=== PATIENT | male | born 1950 | race Caucasian/White ===

== ENCOUNTER 2016-09-18 01:16 | Emergency (ER) | payer BC ==
[2016-09-18 01:23] VITALS: BP 124/75
[2016-09-18] MEDS ORDERED: Erythromycin TOPICAL GEL* 30 GM TUBE TOPICAL ONE (01:56)
[2016-09-18] MEDS ORDERED: Erythromycin OPTH OINT* APPLIC OINT LEFT EYE ONE (02:15)
--- NOTE | 2016-11-22 11:01 | ED ---
Throat Pain/Nasal Congestion - HPI Summary HPI Summary: Pt with c/o left eye pain, potential foreign body. Pt states that he was doing yardwork 09/17/16, started to have s/s at that time. - History of Current Complaint Chief Complaint: EDEyeProblem Time Seen by Provider: 09/18/16 01:28 Hx Obtained From: Patient, Family/Reflow Operator Onset/Duration: Sudden Onset Severity: Moderate Associated Signs And Symptoms: Positive: FB Sensation Cough: None - Allergies/Home Medications Allergies/Adverse Reactions: Allergies Allergy/AdvReac Type Severity Reaction Status Date / Time No Known Allergies Allergy Verified 09/18/16 01:23 PMH/Surg Hx/FS Hx/Imm Hx Endocrine/Hematology History: Reports: Hx Diabetes Denies: Hx Bone Marrow Disease, Hx Sickle Cell Disease, Hx Thyroid Disease, Hx Anemia GI History: Reports: Hx Gastroesophageal Reflux Disease Denies: Hx Cirrhosis, Hx Crohn's Disease, Hx Hiatal Hernia, Hx Irritable Bowel, Hx Jaundice, Hx Ulcer, Other GI Disorders History: Reports: Hx Kidney Stones Denies: Hx Kidney Infection, Other Problems/Disorders Musculoskeletal History: Denies: Hx Arthritis, Hx Bursitis, Hx Tendonitis, Other Musculoskeletal History Sensory History: Denies: Hx Cataracts, Hx Contacts or Glasses, Hx Glaucoma, Hx Hearing Aid Opthamlomology History: Denies: Hx Cataracts, Hx Contacts or Glasses, Hx Glaucoma Neurological History: Denies: Hx Headaches, Hx Migraine, Hx Seizures, Other Neuro Impairments/ Disorders Psychiatric History: Denies: Hx Anxiety, Hx Depression - Cancer History Hx Chemotherapy: No - Surgical History Surgery Procedure, Year, and Place: 11 KNEE SURGERIES, RIGHT ANKLE SURGERY X 3, PLATE IN LEFT WRIST 09/15, STENT PLACEMENT. Hx Anesthesia Reactions: No Infectious Disease History: No Infectious Disease History: Denies: Hx Hepatitis, Traveled Outside the [place] in Last 30 Days - Family History Known Family History: Positive: None - Social History Occupation: Retired Lives: With Family Alcohol Use: Occasionally Substance Use Type: Reports: None Smoking Status (MU): Never Smoked Tobacco Review of Systems Positive: Drainage - clear, Erythema. Negative: Photophobia, Blurred Vision, Diplopia All Other Systems Reviewed And Are Negative: Yes Physical Exam Triage Information Reviewed: Yes Vital Signs On Initial Exam: Initial Vitals Temp Pulse Resp BP Pulse Ox 97.3 F 82 16 124/75 99 09/18/16 01:16 09/18/16 01:16 09/18/16 01:16 09/18/16 01:16 09/18/16 01:16 Vital Signs Reviewed: Yes Appearance: Positive: Well-Appearing, No Pain Distress, Well-Nourished Skin: Positive: Warm, Skin Color Reflects Adequate Perfusion, Dry, Soft Head/Face: Positive: Normal Head/Face Inspection Eyes: Positive: EOMI, RIA, Conjunctiva Inflammed - left, Discharge - clear ENT: Positive: Hearing grossly normal Respiratory/Lung Sounds: Positive: Breath Sounds Present Cardiovascular: Positive: RRR Neurological: Positive: Sensory/Motor Intact, Alert, Oriented to Person Place, Time, NV Bundle Intact Distally, Normal Gait Psychiatric: Positive: Affect/Mood Appropriate AVPU Assessment: Alert Procedures - Eye Procedure Alcaine Drops Administered: Yes Eye FB Removal: other - abrasion to left cornea Antibiotic Ointment/Drps Admin: left eye Diagnostics - Vital Signs Vital Signs Temp Pulse Resp BP Pulse Ox 09/18/16 02:28 98.6 F 09/18/16 01:16 97.3 F 82 16 124/75 99 - Laboratory Lab Statement: Any lab studies that have been ordered have been reviewed, and results considered in the medical decision making process. EENT Course/Dx - Differential Diagnoses Differential Diagnoses: Abrasion, Conjunctivitis, Detached Retina, Foreign Body , Laceration, Penetrating Injury, Uveitis - Diagnoses Provider Diagnoses: Corneal abrasion Discharge - Discharge Plan Condition: Stable Disposition: HOME Patient Education Materials: Eye Pain (ED) Referrals: Boni Walden MD [Medical Doctor] - Agustín Caicedo MD [Primary Care Provider] - Additional Instructions: Please use the medication provided as directed and follow-up with Dr. Walden as scheduled in the morning. Continue Naproxen for pain and swelling. Return to the emergency department for worsening symptoms.
== END 2016-09-18 02:28 | disposition home or self-care (01) ==
LOC: ED 01:16
DX: S05.02XA Injury of conjunctiva and corneal abrasion without foreign body, left eye, initial encounter (principal); X58.XXXA Exposure to other specified factors, initial encounter; Y93.89 Activity, other specified; Y92.9 Unspecified place or not applicable; Y99.9 Unspecified external cause status
CPT/HCPCS: 99282; A9270-GY

== ENCOUNTER 2022-10-31 13:00 | Inpatient (IN) ==
[2022-10-31] MEDS ORDERED: ceFAZolin 1 GM ADVAN 1 GM in NS 0.9% 50 ML 50 ML IVPB ONE (13:35)
[2022-10-31 14:48] LABS: ABS Eosinophils 0.3 10^3/uL (0.0-0.5); ABS Lymphocytes 1.1 10^3/uL (1.0-4.8); ABS Monocytes 0.4 10^3/uL (0.0-1.1); ABS Neutrophils 3.7 10^3/uL (1.5-7.6); Eosinophil % 4.9 %; Hematocrit 37.8 % (38-53); Hemoglobin 12.9 g/dL (13.2-16.3); Lymphocyte % 20.2 %; Mean Corpuscular Hemoglobin 30.8 pg (27-33); Mean Corpuscular Hgb Conc 34.1 g/dL (31-36); Mean Corpuscular Volume 90.5 fL (80-97); Mean Platelet Volume 8.8 fL (7.5-11.2); Platelet Count 208 10^3/uL (150-450); Red Blood Count 4.18 10^6/uL (4.06-5.63); Red Cell Distribution Width 12.9 % (12-17); White Blood Count 5.5 10^3/uL (3.6-10.2)
[2022-10-31 15:11] LABS: Albumin 3.9 g/dL (3.2-5.2); Albumin/Globulin Ratio 2.1 (1-3); C Reactive Protein 56.51 mg/L (<8.01); Calcium 8.8 mg/dL (8.6-10.3); Creatinine, Serum 1.24 mg/dL (0.67-1.17); Globulin 1.9 g/dL (2-4); Potassium 4.7 mmol/L (3.5-5.0); Total Bilirubin 0.7 mg/dL (0.2-1.0); Total Protein 5.8 g/dL (6.4-8.9); eGFR CKD-EPI 62.2 (>60)
[2022-10-31] MEDS ORDERED: NS 0.9% 1000 ml BAG 1,000 ML IV ONE (16:05)
[2022-10-31] MEDS ORDERED: oxyCODONE/Acetamin 10/325(NF) TAB PO PRN (16:06)
[2022-10-31] MEDS ORDERED: Dextrose 50% Syringe 50 ml 25 GM/50 ML SYRINGE IV PUSH PRN (16:19)
[2022-10-31] MEDS ORDERED: ceFAZolin 1 GM ADVAN 1 GM in NS 0.9% 50 ML 50 ML IVPB SCH (17:00)
[2022-10-31] MEDS: oxyCODONE/Acetamin 5/325 mg TAB PO PRN (18:36)
[2022-10-31] MEDS: Heparin 5000 UNITS/ML 1 mL VIAL SUBCUT SCH (20:56)
[2022-10-31] MEDS: ceFAZolin 1 GM Q8H (ADVAN) IVPB SCH (23:07)
[2022-11-01] MEDS ORDERED: Acetaminophen IV 1 GM/100ML 1,000 MG/100 ML BAG IV PRN (01:09)
[2022-11-01] MEDS ORDERED: Morphine 2 MG/ML SYRINGE IV PRN (01:16)
[2022-11-01 06:29] LABS: ABS Eosinophils 0.3 10^3/uL (0.0-0.5); ABS Lymphocytes 1.9 10^3/uL (1.0-4.8); ABS Monocytes 0.4 10^3/uL (0.0-1.1); ABS Neutrophils 3.6 10^3/uL (1.5-7.6); Eosinophil % 4.5 %; Hematocrit 32.8 % (38-53); Hemoglobin 11.4 g/dL (13.2-16.3); Lymphocyte % 30.3 %; Mean Corpuscular Hemoglobin 31.2 pg (27-33); Mean Corpuscular Hgb Conc 34.8 g/dL (31-36); Mean Corpuscular Volume 89.6 fL (80-97); Mean Platelet Volume 8.4 fL (7.5-11.2); Platelet Count 183 10^3/uL (150-450); Red Blood Count 3.66 10^6/uL (4.06-5.63); Red Cell Distribution Width 12.8 % (12-17); White Blood Count 6.3 10^3/uL (3.6-10.2)
[2022-11-01 06:38] LABS: Calcium 8.3 mg/dL (8.6-10.3); Potassium 4.4 mmol/L (3.5-5.0)
[2022-11-01 06:44] LABS: Creatinine, Serum 1.21 mg/dL (0.67-1.17)
[2022-11-01] MEDS: Heparin 5000 UNITS/ML 1 mL VIAL SUBCUT SCH ×2 (07:49→20:10)
[2022-11-01] MEDS: ceFAZolin 1 GM Q8H (ADVAN) IVPB SCH ×3 (08:04→23:02)
[2022-11-01] MEDS ORDERED: Lactated Ringers 1000 ml BAG 1,000 ML IV SCH (09:00)
[2022-11-01] MEDS: oxyCODONE/Acetamin 5/325 mg TAB PO PRN (12:17)
[2022-11-02 06:16] LABS: ABS Eosinophils 0.3 10^3/uL (0.0-0.5); ABS Lymphocytes 1.3 10^3/uL (1.0-4.8); ABS Monocytes 0.4 10^3/uL (0.0-1.1); ABS Neutrophils 3.2 10^3/uL (1.5-7.6); Eosinophil % 5.7 %; Hematocrit 33.1 % (38-53); Hemoglobin 11.5 g/dL (13.2-16.3); Lymphocyte % 25.7 %; Mean Corpuscular Hemoglobin 31.5 pg (27-33); Mean Corpuscular Hgb Conc 34.8 g/dL (31-36); Mean Corpuscular Volume 90.3 fL (80-97); Mean Platelet Volume 8.4 fL (7.5-11.2); Nucleated Red Blood Cells % 0.1 /100 WBC (0.0-0.4); Platelet Count 192 10^3/uL (150-450); Red Blood Count 3.67 10^6/uL (4.06-5.63); Red Cell Distribution Width 12.6 % (12-17); White Blood Count 5.2 10^3/uL (3.6-10.2)
[2022-11-02 06:44] LABS: Calcium 8.5 mg/dL (8.6-10.3); Creatinine, Serum 1.07 mg/dL (0.67-1.17); Magnesium 1.8 mg/dL (1.9-2.7); eGFR CKD-EPI 74.2 (>60)
[2022-11-02] MEDS ORDERED: Magnesium Sulfate IV 1GM/100ML 1 GM/100 ML BAG IV ONE (07:08)
[2022-11-02] MEDS: ceFAZolin 1 GM Q8H (ADVAN) IVPB SCH (08:24)
[2022-11-02] MEDS: Heparin 5000 UNITS/ML 1 mL VIAL SUBCUT SCH (08:24)
[2022-11-02 09:47] VITALS: BP 112/71
== END 2022-11-02 12:15 | disposition home or self-care (01) | DRG 603 ==
LOC: ED 13:00 → SUATTDRO 15:36 → EDHOLD 15:36 → MED 18:18
PROVIDERS: ADMIT Internal Medicine; ATTEND Internal Medicine